=== PATIENT | male | born 1980 | race Caucasian/White ===

== ENCOUNTER → 2023-12-07 06:34 | Day surgery (SDC) | payer OTHER, SELFPAY | LOC: GI 06:34 | PROVIDERS: ATTENDING PHYSICIAN Internal Medicine Gastroenterology | DX: Z09 Encounter for follow-up examination after completed treatment for conditions other than malignant neoplasm (principal); Z86.010 Personal history of colon polyps; Z98.890 Other specified postprocedural states; K63.5 Polyp of colon | CPT/HCPCS: 45385; 45380; 88305 ==